=== PATIENT | female | born 1940 | race Caucasian/White ===

== ENCOUNTER 2017-09-11 17:35 | Inpatient (IN) | payer OTHER ==
[~2017-09-11] VITALS: Ht 162.6 cm; Wt 59.8 kg
[~2017-09-11 17:35] MED LIST: ALEVE220 MG PO; AMBIEN10 MG PO; ATROVENT H200 INHALA IH; BROVANA15 MCG/2 M IH; CITRACAL W/V1 TABLE1 PO; DOLOPHINE HCL10 MG PO; ERGOCALCIF50000 UNIT PO; KLOR-CON 1010 ME1 PO; PRAVACHOL40 MG PO; PULMICORT0.25 MG/1 IH; THEOPHYLLINE400 MG PO; ZESTRIL10 MG PO; ZOLOFT100 MG PO
[2017-09-11 19:49] LABS: HEMATOCRIT 37.4 % (36.0-46.0); HEMOGLOBIN 12.4 G/DL (11.9-15.5); MCH 31.1 PG (29.0-34.0); MCHC 33.2 G/DL (30.0-36.0); MCV 93.7 FL (83-99); PLATELET COUNT 114 K/uL (156-360); RBC DIS.WIDTH-CV 13.7 % (11.8-14.6); RBC DIS.WIDTH-SD 46.6 % (39-53); RED BLOOD COUNT 3.99 M/uL (3.80-5.20)
[2017-09-11 20:03] LABS: CHLORIDE 103 mEq/L (99-109); POTASSIUM 3.8 mEq/L (3.7-5.4); SODIUM 138 mEq/L (136-147)
[2017-09-11 20:05] LABS: GLUCOSE 110 mg/dL (70-99)
[2017-09-11 20:08] LABS: CREATININE 0.9 mg/dL (0.6-1.3); GFR ESTIMATE (CALCULATED) > 59 mL/min/
[2017-09-11 20:09] LABS: UREA NITROGEN (BUN) 13 mg/dL (9-23)
[2017-09-11 20:16] LABS: TROP-I INTERPRETATION NEGATIVE; TROPONIN-I < 0.01 ng/mL (0.0-0.30)
[2017-09-11] MEDS ORDERED: ENDOCET 5-3251 EACH PO (21:08)
[2017-09-11] MEDS ORDERED: GABAPENTIN300 MG PO (21:09)
[2017-09-11] MEDS ORDERED: SENNA PLUS TAB1 EACH PO (21:11)
[2017-09-11] MEDS ORDERED: LISINOPRIL10 MG PO (21:13)
[2017-09-11] MEDS ORDERED: POTASSIUM CHLO10 ME4 PO (21:14)
[2017-09-11] MEDS ORDERED: SERTRALINE HCL100 MG PO (21:14)
[2017-09-11] MEDS ORDERED: PRAVASTATIN SOD40 MG PO (21:14)
[2017-09-11] MEDS ORDERED: METHADONE10 MG PO (21:15)
[2017-09-11 21:54] LABS: APPEARANCE CLOUDY ((CLEAR)); BILIRUBIN NEGATIVE; BLOOD MODERATE; COLOR AMBER ((YELLOW)); GLUCOSE (STRIP) NEGATIVE; KETONES NEGATIVE; LEUKOCYTES MODERATE; NITRITE NEGATIVE; PROTEIN (STRIP) 30; SPECIFIC GRAVITY 1.018 (1.000-1.030); UROBILINOGEN 0.2 MG/DL (0.2-1.0)
[2017-09-11 21:58] LABS: BACTERIA RARE /HPF; EPITHELIAL CELLS 1+ /HPF; HYALINE CASTS 0-5 /LPF; MUCUS TRACE /LPF; WHITE BLOOD CELLS 40-50 /HPF (0-5)
[2017-09-11 23:29] VITALS: BP 119/59
[2017-09-12 00:08] LABS: TROP-I INTERPRETATION NEGATIVE; TROPONIN-I 0.01 ng/mL (0.0-0.30)
[2017-09-12 03:33] VITALS: BP 146/65
[2017-09-12 07:26] LABS: TROP-I INTERPRETATION NEGATIVE; TROPONIN-I < 0.01 ng/mL (0.0-0.30)
[2017-09-12 07:27] LABS: HEMATOCRIT 34.7 % (36.0-46.0); HEMOGLOBIN 11.2 G/DL (11.9-15.5); MCH 30.5 PG (29.0-34.0); MCHC 32.3 G/DL (30.0-36.0); MCV 94.6 FL (83-99); PLATELET COUNT 100 K/uL (156-360); RBC DIS.WIDTH-CV 13.8 % (11.8-14.6); RBC DIS.WIDTH-SD 48.7 % (39-53); RED BLOOD COUNT 3.67 M/uL (3.80-5.20); WHITE BLOOD COUNT 7.2 K/uL (4.1-10.2)
[2017-09-12 07:32] LABS: CHLORIDE 106 MEQ/L (99-109); CREATININE 0.9 MG/DL (0.6-1.3); GFR ESTIMATE (CALCULATED) > 59 mL/min/; GLUCOSE 107 mg/dL (70-99); POTASSIUM 3.5 MEQ/L (3.7-5.4); SODIUM 140 MEQ/L (136-147); UREA NITROGEN (BUN) 17 mg/dL (9-23)
[2017-09-12 08:10] VITALS: BP 132/67
[2017-09-12 11:27] VITALS: BP 159/72
[2017-09-12 18:28] VITALS: BP 132/61
[2017-09-12 19:44] VITALS: BP 159/66
[2017-09-12 23:36] VITALS: BP 116/57
[2017-09-13 03:53] VITALS: BP 134/61
[2017-09-13 06:27] LABS: CHLORIDE 105 MEQ/L (99-109); CREATININE 0.8 MG/DL (0.6-1.3); GFR ESTIMATE (CALCULATED) > 59 mL/min/; GLUCOSE 115 mg/dL (70-99); POTASSIUM 3.6 MEQ/L (3.7-5.4); SODIUM 138 MEQ/L (136-147); UREA NITROGEN (BUN) 14 mg/dL (9-23)
[2017-09-13 06:53] LABS: HEMATOCRIT 28.3 % (36.0-46.0); MCH 31.1 PG (29.0-34.0); MCHC 32.2 G/DL (30.0-36.0); MCV 96.6 FL (83-99); PLATELET COUNT 90 K/uL (156-360); RBC DIS.WIDTH-CV 14.1 % (11.8-14.6); RBC DIS.WIDTH-SD 49.9 % (39-53); WHITE BLOOD COUNT 6.7 K/uL (4.1-10.2)
[2017-09-13 07:13] LABS: HEMOGLOBIN 9.1 G/DL (11.9-15.5); RED BLOOD COUNT 2.93 M/uL (3.80-5.20)
[2017-09-13 08:10] VITALS: BP 130/58
[2017-09-13 15:57] VITALS: BP 97/52
[2017-09-14] VITALS (11 sets, daily range): BP systolic 99–127; BP diastolic 47–58
[2017-09-14 05:37] LABS: HEMATOCRIT 26.7 % (36.0-46.0); HEMOGLOBIN 8.5 G/DL (11.9-15.5); MCH 30.9 PG (29.0-34.0); MCHC 31.8 G/DL (30.0-36.0); MCV 97.1 FL (83-99); PLATELET COUNT 102 K/uL (156-360); RBC DIS.WIDTH-CV 14.2 % (11.8-14.6); RBC DIS.WIDTH-SD 50.4 % (39-53); RED BLOOD COUNT 2.75 M/uL (3.80-5.20); WHITE BLOOD COUNT 10.1 K/uL (4.1-10.2)
[2017-09-14 05:57] LABS: CHLORIDE 104 MEQ/L (99-109); GLUCOSE 132 mg/dL (70-99); SODIUM 137 MEQ/L (136-147)
[2017-09-14 05:59] LABS: CREATININE 1.3 MG/DL (0.6-1.3); GFR ESTIMATE (CALCULATED) 42 mL/min/; POTASSIUM 4.4 MEQ/L (3.7-5.4); UREA NITROGEN (BUN) 22 mg/dL (9-23)
[2017-09-14 15:29] LABS: HEMATOCRIT 25.8 % (36.0-46.0); HEMOGLOBIN 8.3 G/DL (11.9-15.5); MCV 97.4 FL (83-99)
[2017-09-15] VITALS (10 sets, daily range): BP systolic 95–168; BP diastolic 46–89
[2017-09-15 06:42] LABS: HEMATOCRIT 26.8 % (36.0-46.0); HEMOGLOBIN 8.8 G/DL (11.9-15.5); MCH 30.9 PG (29.0-34.0); MCHC 32.8 G/DL (30.0-36.0); PLATELET COUNT 116 K/uL (156-360); RBC DIS.WIDTH-CV 15.3 % (11.8-14.6); RBC DIS.WIDTH-SD 53.2 % (39-53); RED BLOOD COUNT 2.85 M/uL (3.80-5.20); WHITE BLOOD COUNT 10.1 K/uL (4.1-10.2)
[2017-09-15 07:05] LABS: CHLORIDE 105 MEQ/L (99-109); CREATININE 1.1 MG/DL (0.6-1.3); GFR ESTIMATE (CALCULATED) 51 mL/min/; GLUCOSE 118 mg/dL (70-99); POTASSIUM 3.8 MEQ/L (3.7-5.4); SODIUM 138 MEQ/L (136-147); UREA NITROGEN (BUN) 29 mg/dL (9-23)
[2017-09-16 06:25] LABS: HEMATOCRIT 28.7 % (36.0-46.0); HEMOGLOBIN 9.5 G/DL (11.9-15.5); MCH 30.8 PG (29.0-34.0); MCHC 33.1 G/DL (30.0-36.0); MCV 93.2 FL (83-99); PLATELET COUNT 124 K/uL (156-360); RBC DIS.WIDTH-CV 15.2 % (11.8-14.6); RBC DIS.WIDTH-SD 52.4 % (39-53); RED BLOOD COUNT 3.08 M/uL (3.80-5.20); WHITE BLOOD COUNT 6.9 K/uL (4.1-10.2)
[2017-09-16 07:37] VITALS: BP 108/53
[2017-09-16 11:17] LABS: THYROTROPIN (TSH) 0.77 MIU/L (0.4-5.5)
[2017-09-16 16:04] VITALS: BP 138/61
[2017-09-17 00:22] VITALS: BP 126/64
[2017-09-17 05:37] LABS: HEMATOCRIT 28.9 % (36.0-46.0); HEMOGLOBIN 9.7 G/DL (11.9-15.5); MCH 31.1 PG (29.0-34.0); MCHC 33.6 G/DL (30.0-36.0); MCV 92.6 FL (83-99); PLATELET COUNT 159 K/uL (156-360); RBC DIS.WIDTH-CV 14.6 % (11.8-14.6); RBC DIS.WIDTH-SD 49.7 % (39-53); RED BLOOD COUNT 3.12 M/uL (3.80-5.20); WHITE BLOOD COUNT 6.1 K/uL (4.1-10.2)
[2017-09-17 08:19] VITALS: BP 157/68
[2017-09-17] MEDS ORDERED: ADVAIR HFA120 INHALA IH (14:15)
[2017-09-17] MEDS ORDERED: ENDOCET 5-3251 EACH PO (14:15)
[2017-09-17] MEDS ORDERED: BISACODYL5 MG PO (14:15)
[2017-09-17] MEDS ORDERED: PREDNISONE10 MG PO (14:15)
[2017-09-17] MEDS ORDERED: DUONEB 2.5-0.5 M3 ML AEROSOL (14:15)
[2017-09-17] MEDS ORDERED: SPIRIVA RESPIMAT4 GM IH (14:15)
[2017-09-17] MEDS ORDERED: POLYETHYLENE GL17 GM PO (14:15)
[2017-09-17] MEDS ORDERED: CEFDINIR300 MG PO (14:38)
[2017-09-17] MEDS ORDERED: METHADONE10 MG PO (15:41)
== END 2017-09-17 16:27 | DRG 469 ==
LOC: EME 17:35 → EDOF 20:52 → 3EAST 20:52 → ENRESERV 20:53 → 3EAST 22:05
PROVIDERS: Internal Medicine; Physician Assistant
PROC: 0SRR0JA Replacement of Right Hip Joint, Femoral Surface with Synthetic Substitute, Uncemented, Open Approach (ICD-10-PCS; principal; 2017-09-12)
PROC: 0T9B70Z Drainage of Bladder with Drainage Device, Via Natural or Artificial Opening (ICD-10-PCS; 2017-09-14)
PROC: 0T7D7ZZ Dilation of Urethra, Via Natural or Artificial Opening (ICD-10-PCS; 2017-09-14)
PROC: 30233N1 Transfusion of Nonautologous Red Blood Cells into Peripheral Vein, Percutaneous Approach (ICD-10-PCS; 2017-09-14)
DX: S72.011A Unspecified intracapsular fracture of right femur, initial encounter for closed fracture (principal); S52.501A Unspecified fracture of the lower end of right radius, initial encounter for closed fracture; W18.30XA Fall on same level, unspecified, initial encounter; Y92.009 Unspecified place in unspecified non-institutional (private) residence as the place of occurrence of the external cause; D62 Acute posthemorrhagic anemia; R33.9 Retention of urine, unspecified; J44.1 Chronic obstructive pulmonary disease with (acute) exacerbation; J44.0 Chronic obstructive pulmonary disease with (acute) lower respiratory infection; J18.9 Pneumonia, unspecified organism; T40.605A Adverse effect of unspecified narcotics, initial encounter; I10 Essential (primary) hypertension; E78.00 Pure hypercholesterolemia, unspecified; D69.6 Thrombocytopenia, unspecified; E03.9 Hypothyroidism, unspecified; E78.5 Hyperlipidemia, unspecified; G89.29 Other chronic pain; G62.9 Polyneuropathy, unspecified; N35.9 Urethral stricture, unspecified; F32.9 Major depressive disorder, single episode, unspecified; N39.41 Urge incontinence; F17.200 Nicotine dependence, unspecified, uncomplicated; Z79.891 Long term (current) use of opiate analgesic
CPT/HCPCS: 70450; 71045; 71250; 72125; 73080; 73110; 73501; 73502; 76000; 80048; 81003; 83880; 84439; 84443; 84484; 85014; 85018; 85027; 86850; 86900; 86901; 86920; 87086; 93005; 94010; 94640; 94640 76; 94667; 94668; 94760; 94799; 97530 GP; 99202; 99281; 99285; C1755; J0131; J0330; J0690; J0696; J1644; J1940; J2250; J2270; J2405; J2710; J3010; J7030; J7512; P9016